=== PATIENT | male | born 1940 | race Caucasian/White ===

== ENCOUNTER 2019-08-28 08:58 | Emergency (ER) | payer OTHER, BC ==
[2019-08-28 09:26] VITALS: BMI 25.1
--- NOTE | 2019-08-28 10:18 | PDOC ---
Documentation entered by Gavino Terry SCRIBE, acting as scribe for Twyla Amador MD. Twyla Amador MD: This documentation has been prepared by the Harrison evans Nirvannie, SCRIBE, under my direction and personally reviewed by me in its entirety. I confirm that the documentation accurately reflects all work, treatment, procedures, and medical decision making performed by me. History of Present Illness - General Chief Complaint: Shortness of Breath Stated Complaint: Shortness of Breath Time Seen by Provider: 08/28/19 09:26 History Source: Patient Exam Limitations: No Limitations - History of Present Illness Initial Comments: 08/28/19 10:48 HPI: The patient is a 78YOM with significant past medical history of multiple myeloma (relapsed, restarted chemotherapy yesterday), hypertension, PAF (on Xarelto), s/p bovine aortic valve replacement, CAD s/p cardiac stenting, HLD, neuropathy (decreased ambulation), and recent admission at [facility] pneumonia, presenting with progressively worsening shortness of breath. As per patient, he was recently admitted at [facility] for pneumonia from 08/05-08/08 and treated with unknown antibiotics. Patient endorses progressively worsening shortness of breath since the episode of pneumonia. Patient notes his daughter advised him to report to the ED for further evaluation secondary to persistent symptoms. As per daughter, patient was admitted for pneumonia earlier this month s/p abx. She notes since his discharge he has been increasingly short of breath and difficulty speaking due to the dyspnea. She notes yesterday patient received a PET scan and infusion at [facility] when admitted there, reinstated on chemotherapy for relapse in MM and his symptoms has since worsened, prompting his arrival to the ED. Denies any cough or hemptysis. Denies a history of DVT/PE. Denies any headache or muscle pains. Denies fever, chills, chest pain, palpitation, dizziness, weakness, N, V, D, abdominal pain, bladder and bowel problems, focal weakness/ paresthesias, leg swelling/pain, rash. No sick contacts or travel. No new changes in medications. No suspicious food intake Allergies: None Past Medical History/PSH: Multiple myeloma, hypertension, PAF (on Xarelto), s/p bovine aortic valve replacement, s/p cardiac stenting, HLD, neuropathy ( decreased ambulation), and recent admission at [facility] pneumonia Social history: Lives with family. No tobacco, ETOH or drug use. Meds: as documented in EMR Family history: noncontributory Oncologist: Dr. Dudley ([phone]) Daughter: Jenniffer: [phone] ROS: Constitutional: no fevers or chills. HEENT: no headache or dizziness. No congestion. No visual/hearing disturbances. CVS: no cp or syncope. Resp: +sob. No cough. no hemoptysis. Gastrointestinal: no abdominal pain, nausea or vomiting. Genitourinary: no urinary sx, hematuria. MUSCULOSKELETAL: No joint pain and swelling. No neck or back pain. SKIN: no redness or skin changes, no discharge, no rash. No wounds. Hematologic: no easy bruising/bleeding. NEUROLOGIC: No headache, dizziness, LOC or altered mental status. No weakness, numbness or tingling. Psych: no anxiety or depression Allergic/Immunologic: no allergies All other systems reviewed and negative, or as documented in HPI. Physical exam: General: Well appearing, awake and alert, NAD. HEENT: NCAT, PERRL, EOMI, clear conjunctiva, anicteric, moist mucus membranes, clear oropharynx, no oral lesions.. Neck: neck supple, FROM Resp: CTAB, normal and even respirations, no respiratory distress CVS: RRR, no murmurs, 2+ peripheral pulses throughout, no peripheral edema Abdomen: soft, NTND, no rebound or guarding. No CVAT. Back: nontender, normal inspection and ROM MSK: no edema, PANG x4, ROM intact. No clubbing or cyanosis. normal bulk and tone. Extremities: no calf tenderness Neuro: alert, oriented appropriately; no focal neurologic deficits Psych: Calm and cooperative Skin: warm and well perfused, cap refill <2 sec, normal color 08/28/19 12:10 08/28/19 16:22 Past History - Past Medical History Allergies/Adverse Reactions: Allergies Allergy/AdvReac Type Severity Reaction Status Date / Time No Known Allergies Allergy Verified 08/28/19 09:29 Home Medications: Ambulatory Orders Diltiazem Cd [Cardizem Cd -] 180 mg PO DAILY 08/28/19 Metformin HCl 500 mg PO BID 08/28/19 Rivaroxaban [Xarelto -] 20 mg PO DAILY 08/28/19 Cancer: Yes COPD: No HTN: Yes - Surgical History Cardiac Surgery: Yes (valve replacement) - Immunization History Immunization Up to Date: Yes - Psycho Social/Smoking Cessation Hx Smoking History: Never smoked Have you smoked in the past 12 months: No Information on smoking cessation initiated: No Hx Alcohol Use: No Drug/Substance Use Hx: No *Physical Exam - Vital Signs Last Vital Signs Temp Pulse Resp BP Pulse Ox 97.4 F L 120 H 22 H 145/95 95 08/28/19 09:11 08/28/19 09:11 08/28/19 09:11 08/28/19 09:11 08/28/19 09:11 Heart Score/ECG Review #1 ECG reviewed & interpreted by me at: 09:50 General ECG Interpretation: Normal Intervals Compared to previous ECG there are: Previous ECG unavail 08/28/19 10:18 EKG atrial fibrillation RVR at 112 bpm, no interval abnormalities, narrow QRS, left axis deviation, ST and T wave segments and morphology normal. Nonspecific T wave abnormalities ED Treatment Course - LABORATORY CBC & Chemistry Diagram: 08/28/19 10:20 08/28/19 10:20 - RADIOLOGY Radiology Studies Ordered: Category Date Time Status CHEST X-RAY PORTABLE* [RAD] Stat Radiology 08/28/19 09:26 Completed ED Progress Note - Progress Note Progress Note: 08/28/19 11:28 10:30AM Patient's daughter Jenniffer called, awaiting call back. 11:00AM Second call placed to patient's daughter, awaiting call back. 11:25AM Call returned from Jenniffer, case was discussed. 12:39PM Call placed to Dr. Dudley's office at [phone], awaiting call back. Medical Decision Making - Medical Decision Making 08/28/19 10:18 Vital Signs Temp Pulse Resp BP Pulse Ox 97.4 F L 120 H 22 H 145/95 98 08/28/19 09:11 08/28/19 09:11 08/28/19 09:11 08/28/19 09:11 08/28/19 09:33 VS reviewed, +tachy afib RVR, no meds required, rate controlling without intervention afebrile mildly hypertensive initially on O2, titrated off with sats >97% but desats, for comfort 2LNC placed. DDx SOB: ACS, PE, PTX, CHF, COPD exac, pulmonary edema, pleurisy, pneumonia, viral syndrome. effusion. anemia, electrolyte/metabolic derangements. medication side effect, cardiotoxicity. EKG atrial fibrillation RVR at 112 bpm, no interval abnormalities, narrow QRS, left axis deviation, ST and T wave segments and morphology normal. Nonspecific T wave abnormalities no prior. Chest x-ray appears clear, atelectasis at the bases, well aerated lungs no prior Notable for anemia 10.8/31.4, unknown baseline, no evidence of bleeding no transfusion indicated at this time. No evidence of neutropenia, coags and dimer negative, unlikely be PE, creatinine is mildly elevated 1.4 GFR is relatively preserved, troponin is negative x1 reassuring, BNP however is greater than 3000, does not appear to be fluid overloaded will require trending and cardiac work-up, Flu swab pre magaña neg collateral info with Daughter Pily over the phone, as documented in HPI updated with results and workup, [facility] discussion with OPERATIONAL RISK MANAGER 08/28/19 12:59 - spoke with JERRY Mi at [facility] discussed case, being treated for relapse MM and initated restaging and chemo infusion yesterday, bone marrow bx and started on Decep, concern for risk of fluid overload/cardiotoxicity. PET scan done planned for admission tomorrow discussed case, updated with impression and plan and results, transfer to [facility] for admission - transfer paperwork given and consent obtained. EMS tele/electric razor mechanic for transfer, [address] accepting physician DR Burgos. 08/28/19 16:20 08/28/19 16:23 Discharge - Discharge Information Problems reviewed: Yes Clinical Impression/Diagnosis: Shortness of breath, Multiple myeloma, in relapse Condition: Guarded - Admission Yes - Follow up/Referral - Patient Discharge Instructions - Post Discharge Activity - Transfer to Acute Care Facility Receiving Facility Name: [facility] Accepting Physician:: Dr Burgos, hematology-oncology
[2019-08-28 10:25] VITALS: TEMP 98.9
[2019-08-28 10:33] LABS: BASO % 0.1 % (0-2.0); EOS % 0.2 % (0-4.5); HEMATOCRIT 31.4 % (35.4-49); HEMOGLOBIN 10.8 GM/dL (11.7-16.9); LYMPH % 13.9 % (8-40); MCH 33.5 pg (25.7-33.7); MCHC 34.4 g/dl (32.0-35.9); MEAN CELL VOLUME 97.5 fl (80-96); MEAN PLT VOLUME 7.1 fl (7.5-11.1); NEUT % 72.8 % (42.8-82.8); PLATELET COUNT 171 K/MM3 (134-434); RBC 3.22 M/mm3 (4.00-5.60); RDW 22.2 % (11.9-15.9); WHITE BLOOD COUNT 4.3 K/mm3 (4.0-10.0)
[2019-08-28 11:35] LABS: ALBUMIN 2.5 g/dl (3.4-5.0); ALK PHOS 61 U/L (45-117); ANION GAP 9 MMOL/L (8-16); BLOOD UREA NITROGEN 28.4 mg/dL (7-18); CALCIUM 8.6 mg/dL (8.5-10.1); CHLORIDE 101 mmol/L (98-107); CO2 25 mmol/L (21-32); CREATININE 1.4 mg/dL (0.55-1.3); GLUCOSE,RANDOM 153 mg/dL (74-106); MAGNESIUM 1.8 mg/dL (1.8-2.4); N-TERMINAL BNP 3065.5 pg/ml (5-450); POTASSIUM 3.6 mmol/L (3.5-5.1); SGOT/AST 19 U/L (15-37); SGPT/ALT 36 U/L (13-61); SODIUM 134 mmol/L (136-145); TOT PROT 8.8 g/dl (6.4-8.2)
[2019-08-28 11:48] LABS: INR 1.27 (0.83-1.09)
[2019-08-28 11:50] LABS: ACTIVATED PTT 29.7 SECONDS (25.2-36.5)
[2019-08-28 14:16] LABS: ANISOCYTOSIS 1+; MACROCYTOSIS 0; OVALOCYTE 1+; PLATELET ESTIMATE NORMAL; TEAR DROP CELLS 1+
--- NOTE | 2019-08-28 15:37 | EKG ---
Test Reason : Blood Pressure : / mmHG Vent. Rate : 112 BPM Atrial Rate : 120 BPM P-R Int : 000 ms QRS Dur : 092 ms QT Int : 350 ms P-R-T Axes : 000 -45 050 degrees QTc Int : 477 ms POOR DATA QUALITY, INTERPRETATION MAY BE ADVERSELY AFFECTED ATRIAL FIBRILLATION WITH RAPID VENTRICULAR RESPONSE but would prefer a better ekg to confirm diagnosis LEFT AXIS DEVIATION MODERATE VOLTAGE CRITERIA FOR LVH, MAY BE NORMAL VARIANT ABNORMAL ECG NO PREVIOUS ECGS AVAILABLE Confirmed by MD Elisabeth, Alex ([id number]) on 08/28/2019 3:37:00 PM Referred By: Confirmed By:Alex Barber MD
[2019-08-28] MEDS ORDERED: dilTIAZem HCL 50 MG/10 ML - 10 ML VIAL IVPUSH ONE (17:32)
[2019-08-28] MEDS ORDERED: dilTIAZem HCL 60 MG TABLET (FP) PO ONE (17:32)
[2019-08-28] MEDS ORDERED: dilTIAZem HCL 60 MG TABLET (FP) ONE (17:48)
[2019-08-28] MEDS ORDERED: dilTIAZem HCL 125 MG/25 ML - 25 ML VIAL ONE (17:50)
[2019-08-28 18:36] VITALS: BP 144/107; PULSE 109
== END 2019-08-28 18:39 | disposition short-term general hospital (02) ==
LOC: JER 08:58 → SUPCPDRO 08:58 → JER 18:39
PROC: 3E033GC Introduction of Other Therapeutic Substance into Peripheral Vein, Percutaneous Approach (ICD-10-PCS; principal; 2019-08-28)
DX: C90.02 Multiple myeloma in relapse (principal); I24.9 Acute ischemic heart disease, unspecified; I50.9 Heart failure, unspecified; J44.9 Chronic obstructive pulmonary disease, unspecified; J18.9 Pneumonia, unspecified organism; B34.9 Viral infection, unspecified
CPT/HCPCS: 36415; 71045-TC-FY; 80053; 82550; 83735; 83880; 84484; 85025; 85379; 85610; 85730; 87804; 93005; 93010; 96374; 99283-25